=== PATIENT | male | born 1980 | race Caucasian/White ===

== ENCOUNTER 2017-03-30 13:52 | Emergency (ER) | payer OTHER ==
[~2017-03-30] VITALS: Ht 182.9 cm; Wt 97.9 kg
[~2017-03-30 13:52] MED LIST: CELEBREX100 MG PO
[2017-03-30 15:47] LABS: HEMATOCRIT 42.7 % (38.0-50.0); MCH 28.4 PG (29.0-34.0); MCHC 32.6 G/DL (30.0-36.0); MCV 87.1 FL (86-99); MEAN PLAT.VOLUME 10.5 uM^3 (9.0-12.4); PLATELET COUNT 217 K/uL (156-360); RBC DIS.WIDTH-CV 13.1 % (11.8-14.6); RBC DIS.WIDTH-SD 41.3 % (39-53); WHITE BLOOD COUNT 10.3 K/uL (4.1-10.2)
[2017-03-30 15:55] LABS: CHLORIDE 105 mEq/L (99-109); POTASSIUM 4.3 mEq/L (3.7-5.4); SODIUM 140 mEq/L (136-147)
[2017-03-30 15:57] LABS: GLUCOSE 85 mg/dL (70-99)
[2017-03-30 15:58] LABS: ANION GAP 10 MEQ/L (2-14)
[2017-03-30 16:01] LABS: GFR ESTIMATE (CALCULATED) > 59 mL/min/
[2017-03-30 16:02] LABS: UREA NITROGEN (BUN) 11 mg/dL (9-23)
[2017-03-30 16:49] LABS: INFLUENZA A VIRAL ANTIGEN NEGATIVE; INFLUENZA B VIRAL ANTIGEN NEGATIVE
[2017-03-30] MEDS ORDERED: TESSALON PERLE100 MG PO (16:56)
[2017-03-30] MEDS ORDERED: XYLOCAINE VISC100 ML MM (17:03)
[2017-03-30 17:13] VITALS: BP 122/83
== END 2017-03-30 17:14 | disposition home or self-care (01) ==
LOC: EME 13:52
PROVIDERS: Physician Assistant Medical
DX: B34.9 Viral infection, unspecified (principal); J02.9 Acute pharyngitis, unspecified; R51 Headache; H92.09 Otalgia, unspecified ear; R05 Cough; K59.00 Constipation, unspecified; Z98.890 Other specified postprocedural states; Z98.1 Arthrodesis status
CPT/HCPCS: 71020; 80048; 85027; 87502; 87651 90; 99281; 99284